=== PATIENT | female | born 1980 ===

== ENCOUNTER → 2022-11-03 | Outpatient (CLI) | payer OTHER ==
[2022-11-05 01:08] LABS: CHLAMYDIA TRACHOMATIS, NAA Negative (Negative)
== END ==
LOC: LAB 09:50 → LAB SHORT 09:50
PROVIDERS: Obstetrics & Gynecology
DX: Z30.8 Encounter for other contraceptive management (principal)
CPT/HCPCS: 87491; 87591

== ENCOUNTER → 2023-02-23 | Outpatient (CLI) | payer OTHER ==
[2023-02-24 15:10] LABS: HPV 16 Negative (Negative); HPV 18 Negative (Negative); HPV OTHER HR TYPES Negative (Negative)
== END | disposition home or self-care (01) ==
LOC: LAB 12:04 → LAB SHORT 12:04
PROVIDERS: Obstetrics & Gynecology
DX: Z01.419 Encounter for gynecological examination (general) (routine) without abnormal findings (principal)
CPT/HCPCS: 87624; G0145

== ENCOUNTER 2025-08-05 06:09 | Day surgery (SDC) | payer OTHER ==
[~2025-08-05] VITALS: Ht 162.6 cm; Wt 61.8 kg
[~2025-08-05 06:09] MED LIST: Lidocaine 1%-Epineph 1:100000 20 ML MDV ONE; Sodium Bicarb 8.4% 1 MEQ/ML 50 ML Vial ONE
[2025-08-05] MEDS ORDERED: CeFAZolin Sodium 2,000 MG VIAL ONE (06:26)
[2025-08-05] MEDS ORDERED: BUSPIRONE HCL5 M6 PO (06:45)
[2025-08-05] MEDS ORDERED: FLUOXETINE HCL60 MG PO (06:46)
[2025-08-05] MEDS ORDERED: AMLODIPINE BESYL5 MG PO (06:46)
[2025-08-05] MEDS ORDERED: WEGOVY1.7 MG/0.7 SQ (06:47)
[2025-08-05] MEDS ORDERED: IBUP200 PO (06:47)
[2025-08-05] MEDS ORDERED: NS 500 ML IV ONE ×2 (06:58→07:27)
--- NOTE | 2025-08-05 07:10 | NUR ---
08/05/25 0710 ROXANNA CARLSON LOCAL INJ AT 0708 7 ML 1% LIDO W/ EPIINEPHRINE 1:100K
[2025-08-05 08:17] VITALS: BP 114/83
[2025-08-05] MEDS ORDERED: Ondansetron HCl 2 MG / ML 2ML Vial IV ONE (19:57)
== END 2025-08-05 08:10 | disposition home or self-care (01) ==
LOC: ORSCSDS 06:09
PROVIDERS: Orthopaedic Surgery
PROC: 01N54ZZ Release Median Nerve, Percutaneous Endoscopic Approach (ICD-10-PCS; principal; 2025-08-05 07:30)
DX: G56.01 Carpal tunnel syndrome, right upper limb (principal); I10 Essential (primary) hypertension; M79.7 Fibromyalgia; Z79.85 Long-term (current) use of injectable non-insulin antidiabetic drugs; Z79.899 Other long term (current) drug therapy; Z87.891 Personal history of nicotine dependence
CPT/HCPCS: J0690; J2405; J2704; J7040